=== PATIENT | female | born 1930 | race Caucasian/White ===

== ENCOUNTER 2017-09-03 20:24 | Emergency (ER) | payer MEDICARE, OTHER ==
[2017-09-03] MEDS ORDERED: Bacitracin Zinc 1 Packet ONE (20:47)
== END 2017-09-03 21:23 | disposition home or self-care (01) ==
LOC: BURERS 20:24
DX: S81.852A Open bite, left lower leg, initial encounter (principal); W54.0XXA Bitten by dog, initial encounter
CPT/HCPCS: 99283

== ENCOUNTER 2018-01-09 21:03 | Emergency (ER) | payer MEDICARE, OTHER ==
[2018-01-09] MEDS ORDERED: Bacitracin Zinc 1 Packet ONE (21:14)
== END 2018-01-09 21:30 | disposition home or self-care (01) ==
LOC: BURERS 21:03
DX: S80.812A Abrasion, left lower leg, initial encounter (principal); I25.10 Atherosclerotic heart disease of native coronary artery without angina pectoris; I10 Essential (primary) hypertension; Z79.899 Other long term (current) drug therapy; W54.0XXA Bitten by dog, initial encounter
CPT/HCPCS: 99283

== ENCOUNTER 2019-10-04 09:59 | Emergency (ER) | payer MEDICARE, OTHER ==
[2019-10-04 10:52] LABS: #Basophils 0.1 thou/uL (0.0-0.2); #Eosinphils 0.1 thou/uL (0.0-0.7); #Lymphocytes 0.7 thou/uL (1.20-3.40); #Neutrophils 8.7 thou/uL (1.40-6.50); %Basophils 1.1 % (0.0-1.0); %Eosinophils 1.4 % (0.0-10.0); %Lymphocytes 6.4 % (21.0-51.0); %Monocytes 9.6 % (0.0-10.0); %Neutrophils 81.5 % (42.0-75.0); Hemoglobin 13.6 g/dL (12.0-16.0); Mean Corpuscular HGB CONC 31.6 g/dL (32.0-36.0); Mean Corpuscular Hemoglobin 29.1 pg (27.0-31.0); Mean Corpuscular Volume 92.3 fL (78.0-98.0); Mean Platelet Volume 5.8 fL (7.4-10.4); Platelet Count 292 thou/uL (130-400); RBC Distribution Width 13.2 % (11.5-14.5); Red Blood Cell (RBC) Count 4.67 mill/uL (4.20-5.40); White Blood Cell (WBC) Count 10.7 thou/uL (4.8-10.8)
--- NOTE | 2019-10-04 10:55 | RAD ---
Radiograph left wrist 3 views: DATE: 10/04/2019 10:42 AM HISTORY: 89-year-old female with pain and swelling in left wrist. FINDINGS: There is diffuse soft tissue edema of the wrist. No displaced fracture identified. Severe DJD at first CMC joint. The rest of the joints appear normal. On the AP view, there is a subtle, transversely oriented linear lucency across the distal waist of th e navicular bone. IMPRESSION: 1. 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 2. Linear lucency across the scaphoid bone. If there is snuffbox tenderness following trauma, then th is could be a nondisplaced fracture. If not, then this may be a normal intertrabecular marking. 3. Diffuse soft tissue swelling edema of the wrist.
[2019-10-04 10:58] LABS: ALT (SGPT) 14 U/L (8-55); AST (SGOT) 12 U/L (5-34); Albumin 3.9 g/dL (3.4-4.8); Alkaline Phosphatase 41 U/L (40-110); Anion Gap 15 mmol/L (10-20); BUN (Urea Nitrogen) 16 mg/dL (9.8-20.1); Bilirubin, Total 0.4 mg/dL (0.2-1.2); CRP (Inflammatory) 1.74 mg/dL (= or < 0.5); Calc. Creatinine Clearance 0 mL/min (70-130); Calcium 9.7 mg/dL (7.8-10.44); Carbon Dioxide 25 mmol/L (23-31); Chloride 98 mmol/L (98-107); Estimated GFR-MDRD 50; Globulin 2.5 g/dL (2.4-3.5); Glucose 97 mg/dL (83-110); Potassium 4.4 mmol/L (3.5-5.1); Protein, Total 6.4 g/dL (6.0-8.3); Sodium 134 mmol/L (136-145)
== END 2019-10-04 11:47 | disposition home or self-care (01) ==
LOC: BURERS 09:59
DX: M11.232 Other chondrocalcinosis, left wrist (principal); S60.512D Abrasion of left hand, subsequent encounter; R23.4 Changes in skin texture; I25.10 Atherosclerotic heart disease of native coronary artery without angina pectoris; I10 Essential (primary) hypertension; Z79.899 Other long term (current) drug therapy; Z79.82 Long term (current) use of aspirin; X58.XXXD Exposure to other specified factors, subsequent encounter
CPT/HCPCS: 80053; 83605; 84484; 85025; 86140; 87040

== ENCOUNTER 2019-11-26 08:18 | Inpatient (IN) | payer MEDICARE, OTHER ==
[2019-11-26 08:51] LABS: Bilirubin Negative (Negative); Blood, Urine Moderate (Negative); Clarity Turbid (Clear); Glucose, Urine (Dipstick) Negative (Negative); Ketone, Urine Negative (Negative); Leukocyte Moderate (Negative); Nitrite Positive (Negative); Protein, Urine (Dipstick) 100 mg/dL (Neg-Trace); Specific Gravity, Urine 1.015 (1.005-1.030); Urobilinogen 0.2 mg/dL (Less than 2)
[2019-11-26 09:00] LABS: Bacteria/HPF 3+ HPF (None Seen); RBC/HPF 0-3 HPF (0-3); Renal Epithelial 0-3 HPF (None Seen); Squamous Epithelial 0-3 HPF (0-3); Transitional Epithelial 0-3 HPF (None Seen); WBC/HPF 21-50 HPF (0-3)
[2019-11-26] MEDS ORDERED: Milk Of Magnesia 30 ML UDCUP ONE (09:31)
[2019-11-26] MEDS ORDERED: cefTRIAXone\\ROCEPHIN 2 GM VIAL ONE (09:32)
[2019-11-26] MEDS ORDERED: Sodium Chloride 0.9% 100 ML ONE (09:34)
[2019-11-26 09:42] LABS: #Basophils 0.1 thou/uL (0.0-0.2); #Lymphocytes 0.7 thou/uL (1.20-3.40); #Monocytes 1.2 thou/uL (0.11-0.59); #Neutrophils 11.7 thou/uL (1.40-6.50); %Basophils 0.5 % (0.0-1.0); %Eosinophils 0.1 % (0.0-10.0); %Lymphocytes 5.4 % (21.0-51.0); %Neutrophils 85.1 % (42.0-75.0); Hemoglobin 12.3 g/dL (12.0-16.0); Mean Corpuscular HGB CONC 30.6 g/dL (32.0-36.0); Mean Corpuscular Hemoglobin 28.1 pg (27.0-31.0); Mean Corpuscular Volume 91.8 fL (78.0-98.0); Mean Platelet Volume 5.2 fL (7.4-10.4); Platelet Count 336 thou/uL (130-400); RBC Distribution Width 13.4 % (11.5-14.5); Red Blood Cell (RBC) Count 4.38 mill/uL (4.20-5.40); White Blood Cell (WBC) Count 13.8 thou/uL (4.8-10.8)
[2019-11-26 09:47] LABS: ALT (SGPT) 16 U/L (8-55); AST (SGOT) 10 U/L (5-34); Albumin 3.5 g/dL (3.4-4.8); Alkaline Phosphatase 71 U/L (40-110); Anion Gap 14 mmol/L (10-20); BUN (Urea Nitrogen) 14 mg/dL (9.8-20.1); Bilirubin, Total 0.4 mg/dL (0.2-1.2); CK (CPK) Less than 9 U/L (29-168); Calc. Creatinine Clearance 0 mL/min (70-130); Calcium 9.4 mg/dL (7.8-10.44); Carbon Dioxide 28 mmol/L (23-31); Chloride 98 mmol/L (98-107); Estimated GFR-MDRD 49; Glucose 91 mg/dL (83-110); Potassium 4.3 mmol/L (3.5-5.1); Protein, Total 6.5 g/dL (6.0-8.3); Sodium 136 mmol/L (136-145)
[2019-11-26] MEDS ORDERED: Ondansetron PF 4 MG/2 ML Vial IVP PRN (11:15)
[2019-11-26] MEDS ORDERED: Ondansetron ODT 4 MG TAB PO PRN (11:16)
[2019-11-26] MEDS: Sodium Chloride 0.9% 1,000 ML IV SCH (13:08)
--- NOTE | 2019-11-26 14:22 | HP ---
CHIEF COMPLAINT: Flank pain. HISTORY OF PRESENT ILLNESS: This is an 89-year-old female, patient of Dr. Hall who presented to the [facility] Emergency Department earlier today with complaints of generalized flank and abdominal discomfort accompanied by a foul smelling urine for the last 2 days. The patient reports having overall poor intake over this 2-day time frame. She denies having nausea, vomiting, or fever. Due to worsening symptoms, she presented to the ER accordingly. Workup in the ER revealed the patient to have a urinary tract infection along with leukocytosis with left shift and a mildly hypotensive state. Her hypotension did improve with intravenous fluids in the emergency department. She was also provided IV Rocephin in the emergency department after having cultures obtained. She will subsequently be admitted to the floor for further antibiotic care and gentle IV hydration for pyelonephritis. PAST MEDICAL HISTORY: Includes hypertension; coronary artery disease; hypothyroidism; giant-cell arteritis, followed by Dr. Park; endocarditis for which she was evaluated and treated approximately [address] Baca at [place] and [facility] in [place]. The patient reports completing her oral antibiotics for this issue between 1 and 2 weeks ago. SURGICAL HISTORY: She has had a partial bowel resection, appendectomy, cholecystectomy, hysterectomy with one ovary left in place. She has 3 cardiac stents and she has a renal artery stent. SOCIAL HISTORY: The patient lives in [place] with her daughter, son-in-law and her grandson. She denies a history of smoking, alcohol, or illicit drug use. FAMILY HISTORY: Noncontributory. HOME MEDICATIONS: 1. Chronic prednisone therapy currently at 8 mg daily. 2. Spironolactone 25 mg b.i.d. 3. Levothyroxine 50 mcg daily. 4. Zetia 10 mg at bedtime. 5. Diltiazem extended release 120 mg daily. 6. Carvedilol 25 mg b.i.d. 7. Alprazolam 0.25 mg b.i.d. as needed. REVIEW OF SYSTEMS: GENERAL: She denies fever, chills or diaphoresis. EAR, NOSE, AND THROAT: Denies sore throat, nasal congestion or drainage. CARDIOVASCULAR: Denies chest pain or palpitations. RESPIRATORY: Denies shortness of breath or cough. GASTROINTESTINAL: She has had suprapubic pain and flank pain. Denies nausea, vomiting, diarrhea, or constipation. GENITOURINARY: She does have dysuria. MUSCULOSKELETAL: Denies joint pain. DERMATOLOGIC: Denies rash. NEUROLOGIC: Denies headache. LABORATORY DATA: White blood cell count is 13.8, hemoglobin is 12.3, hematocrit 40.2, and platelets are 336. Sodium 136, potassium 4.3, BUN is 14 with creatinine 1.07, GFR is 49, glucose 91. Lactic acid 1.2. AST 10, ALT 16. Troponin was less than 0.010. Anion gap is normal at 14. Urine was turbid with moderate blood and positive for nitrites and leukocyte esterase. IMAGING: Pending official radiological read; however, ER physician discussion with Radiology was advised of likely atelectasis. PHYSICAL EXAMINATION: VITAL SIGNS: Temperature is 98.1, pulse is 65, respiratory rate is 18, oxygen is 96% on room air, and blood pressure is 108/54. GENERAL: The patient is alert and oriented, in no acute distress she has been. HEAD, EYES, EARS, NOSE, AND THROAT: Normocephalic and atraumatic. Pupils are equal, round, and reactive to light. Extraocular muscles are intact bilaterally. She has dry mucous membranes. NECK: Supple with no lymphadenopathy. CARDIOVASCULAR: Regular rate and rhythm with a 2/6 murmur. RESPIRATORY: She has rhonchi to the lung bases with no respiratory compromise. ABDOMEN: Soft and nontender to palpation. She does have costovertebral angle tenderness on the right. She has no rebound or guarding. EXTREMITIES: She has skin abrasions to the left lower extremity. She has peripheral IV access to the left upper extremity. She has no clubbing, cyanosis, or edema. SKIN: No rash. NEUROLOGIC: Nonfocal with cranial nerves 2 through 12 grossly intact. ASSESSMENT AND PLAN: 1. Pyelonephritis. We will resume the patient on IV Rocephin and follow up her urine cultures. We will trend her CBC to assess for resolution of her current leukocytosis. 2. Dehydration. The patient will be continued on normal saline at 50 mL an hour for gentle rehydration. 3. Giant cell arteritis. We will continue the patient's chronic prednisone therapy. 4. Coronary artery disease. The patient is hemodynamically stable. We will resume her usual medications. 5. Atelectasis. We will provide the patient with an incentive spirometer. 6. Hypertension: We will monitor the patient's blood pressure as she was initially mildly hypotensive. It has since rebounded status post IV fluids. We will resume her usual blood pressure medications otherwise. 7. Hypothyroidism. We will resume the patient's home dosing of levothyroxine. 8. Prophylaxis, will provide low Lovenox for DVT prophylaxis and Protonix for GI prophylaxis. 9. Code status is full. 10. Disposition, anticipate the patient to be able to discharge home on a course of oral antibiotics once urine culture is finalized and the patient's oral intake returns back to her baseline. Job ID: [id number]
[2019-11-26] MEDS: Acetaminophen 325 MG TAB PO PRN (14:29)
--- NOTE | 2019-11-26 15:12 | RAD ---
PORTABLE CHEST: 11/26/19 Comparison is made with the prior chest film of 11/04/[address] scan done that day. There is a linear infiltrate in the right base that was not present on the prior chest x-ray. The CT done that day showed some minimal right basilar haziness that was not visible on the chest radiograph . The linear nature of the infiltrate today suggested statistically more likely that this is atelecta sis than infection; however, the latter is not ruled out. Given the current environment, viral testin g might be prudent anyway. No infiltrates were appreciated on the left. The heart size is stable. Den se arterial sclerosis in the aorta is present as usual. IMPRESSION: New linear right basilar infiltrate. More likely atelectasis due to its shape, but infection is not s pecifically excluded. Findings discussed with Dr. Stewart at 1005 on 11/26/2019. POS: HOME
[2019-11-26] MEDS: Spironolactone 25 MG TAB PO SCH (16:21)
[2019-11-26] MEDS: ALPRAZolam 0.5 MG TAB PO PRN (20:27)
[2019-11-26] MEDS: Ezetimibe 10 MG TAB PO SCH (20:28)
[2019-11-26] MEDS: Enoxaparin Sodium 30 MG/0.3 ML SYRINGE SC SCH (20:28)
[2019-11-26] MEDS: Carvedilol 25 MG TAB PO SCH (20:28)
[2019-11-27] MEDS: Sodium Chloride 0.9% 1,000 ML IV SCH ×3 (00:44→23:51)
[2019-11-27] MEDS: traMADol HCl 50 MG TAB PO PRN (01:26)
[2019-11-27] MEDS: Levothyroxine Sodium 50 MCG TAB PO SCH (05:30)
[2019-11-27] MEDS: Acetaminophen 325 MG TAB PO PRN (05:30)
[2019-11-27] MEDS: ALPRAZolam 0.5 MG TAB PO PRN ×3 (05:30→23:52)
[2019-11-27 07:16] LABS: #Basophils 0.1 thou/uL (0.0-0.2); #Lymphocytes 1.3 thou/uL (1.20-3.40); #Monocytes 1.4 thou/uL (0.11-0.59); #Neutrophils 11.1 thou/uL (1.40-6.50); %Basophils 0.8 % (0.0-1.0); %Eosinophils 0.2 % (0.0-10.0); %Lymphocytes 9.2 % (21.0-51.0); %Monocytes 10.3 % (0.0-10.0); %Neutrophils 79.5 % (42.0-75.0); Hemoglobin 11.1 g/dL (12.0-16.0); Mean Corpuscular HGB CONC 30.4 g/dL (32.0-36.0); Mean Corpuscular Volume 92.2 fL (78.0-98.0); Mean Platelet Volume 5.1 fL (7.4-10.4); Platelet Count 306 thou/uL (130-400); RBC Distribution Width 13.2 % (11.5-14.5); Red Blood Cell (RBC) Count 3.97 mill/uL (4.20-5.40)
[2019-11-27 07:24] LABS: ALT (SGPT) 11 U/L (8-55); AST (SGOT) 8 U/L (5-34); Albumin 2.9 g/dL (3.4-4.8); Alkaline Phosphatase 57 U/L (40-110); Anion Gap 13 mmol/L (10-20); BUN (Urea Nitrogen) 11 mg/dL (9.8-20.1); Bilirubin, Total 0.3 mg/dL (0.2-1.2); Calc. Creatinine Clearance 39 mL/min (70-130); Calcium 8.5 mg/dL (7.8-10.44); Carbon Dioxide 24 mmol/L (23-31); Chloride 104 mmol/L (98-107); Estimated GFR-MDRD 72; Globulin 2.5 g/dL (2.4-3.5); Glucose 81 mg/dL (83-110); Potassium 4.1 mmol/L (3.5-5.1); Protein, Total 5.4 g/dL (6.0-8.3); Sodium 137 mmol/L (136-145)
[2019-11-27] MEDS: Saccharomyces boulardii 250 MG CAP PO SCH (09:38)
[2019-11-27] MEDS: Spironolactone 25 MG TAB PO SCH ×2 (09:38→16:13)
[2019-11-27] MEDS: Carvedilol 25 MG TAB PO SCH ×2 (09:39→21:10)
[2019-11-27] MEDS: cefTRIAXone\\ROCEPHIN 1 GM in Sodium Chloride 0.9% 100 ML IVPB SCH (09:41)
[2019-11-27] MEDS: predniSONE 10 MG TAB PO SCH (09:44)
[2019-11-27] MEDS: Ezetimibe 10 MG TAB PO SCH (21:10)
[2019-11-27] MEDS: Enoxaparin Sodium 30 MG/0.3 ML SYRINGE SC SCH (21:10)
[2019-11-28] MEDS: traMADol HCl 50 MG TAB PO PRN (01:12)
[2019-11-28] MEDS: Levothyroxine Sodium 50 MCG TAB PO SCH (05:04)
[2019-11-28 06:29] VITALS: TEMP 97.9
[2019-11-28 07:26] LABS: #Basophils 0.1 thou/uL (0.0-0.2); #Lymphocytes 1.2 thou/uL (1.20-3.40); #Monocytes 1.1 thou/uL (0.11-0.59); #Neutrophils 10.3 thou/uL (1.40-6.50); %Basophils 0.6 % (0.0-1.0); %Eosinophils 0.2 % (0.0-10.0); %Lymphocytes 9.5 % (21.0-51.0); %Monocytes 8.7 % (0.0-10.0); %Neutrophils 80.9 % (42.0-75.0); Hemoglobin 10.4 g/dL (12.0-16.0); Mean Corpuscular HGB CONC 32.1 g/dL (32.0-36.0); Mean Corpuscular Hemoglobin 28.6 pg (27.0-31.0); Mean Corpuscular Volume 89.1 fL (78.0-98.0); Platelet Count 322 thou/uL (130-400); RBC Distribution Width 13.1 % (11.5-14.5); Red Blood Cell (RBC) Count 3.63 mill/uL (4.20-5.40); White Blood Cell (WBC) Count 12.8 thou/uL (4.8-10.8)
[2019-11-28] MEDS: Saccharomyces boulardii 250 MG CAP PO SCH (08:17)
[2019-11-28] MEDS: Spironolactone 25 MG TAB PO SCH ×2 (08:17→17:20)
[2019-11-28] MEDS: Carvedilol 25 MG TAB PO SCH (08:17)
[2019-11-28] MEDS: cefTRIAXone\\ROCEPHIN 1 GM in Sodium Chloride 0.9% 100 ML IVPB SCH (10:28)
[2019-11-28] MEDS: predniSONE 10 MG TAB PO SCH (10:28)
[2019-11-28] MEDS: Acetaminophen 325 MG TAB PO PRN (12:55)
[2019-11-28] MEDS ORDERED: Meclizine HCl 25 MG TAB PO SCH (14:15)
--- NOTE | 2019-11-28 16:03 | DIS ---
DATE OF ADMISSION: 11/26/2019 DATE OF DISCHARGE: 11/28/2019 ADMISSION DIAGNOSIS: Pyelonephritis. DISCHARGE DIAGNOSES: Pyelonephritis, COVID positive, dehydration, giant-cell arteritis, coronary artery disease, atelectasis, hypertension, hypothyroidism, and anxiety. PROCEDURES: 11/26/19, chest x-ray showed new linear right basilar infiltrate, more likely atelectasis due to its shape, but infection is not specifically excluded. HOSPITAL COURSE: This 89-year-old female presented to the [facility] Emergency Department with complaints of flank pain, right greater than left, and generalized abdominal discomfort accompanied by a foul smelling urine over a 2-day time period in which she also had poor intake. Workup in the emergency department revealed the patient to have a urinary tract infection along with leukocytosis with left shift. She was mildly hypotensive and thus was provided IV fluids. After cultures were obtained, she was started on IV Rocephin. Secondary to the patient having a recent mild cough and in conjunction with her chest x-ray finding as above, she was swabbed for COVID prior to her transition to the floor. The patient resumed on IV Rocephin and gentle IV hydration as her oral intake improved. Her COVID test did come back positive. However, she did remain stable on room air and afebrile throughout her stay. Her urine cultures returned and isolated Citrobacter koseri, which happened to be pansensitive. Due to the patient's improvements from her initial admission, she is agreeable to discharge back to her home setting to complete an oral course of Keflex. She has been instructed on precautions in regard to her COVID positive diagnosis and has been further educated on emergency department precautions should her respiratory status worsen. DISPOSITION: The patient will discharge home where she lives in [place] with her daughter and son-in-law along with her grandson. She may follow up with her primary care provider, Dr. Hall this next week. She also reports to have home health for further transition of care although she does not recall the name of the home health company. DISCHARGE MEDICATIONS: 1. One new medication will be Keflex 500 mg p.o. b.i.d. x7 days. 2. She will resume her usual medications otherwise which include. a. Alprazolam 0.25 mg b.i.d. p.r.n. b. Carvedilol 25 mg b.i.d. c. Diltiazem 120 mg daily. d. Zetia 10 mg at bedtime. e. Levothyroxine 50 mcg daily. f. Prednisone 8 mg daily. g. Florastor 250 mg daily. h. Spironolactone 50 mg b.i.d. i. Tramadol 50 mg b.i.d. as needed. Job ID: [id number] [facility]
[2019-11-28 16:55] VITALS: BP 156/70
== END 2019-11-28 17:20 | disposition home health service (06) | DRG 689 ==
LOC: BURERS 08:18 → BURMED 10:10
PROVIDERS: ADMIT Family Medicine; ATTEND Family Medicine
DX: N12 Tubulo-interstitial nephritis, not specified as acute or chronic (principal); U07.1 COVID-19; J98.11 Atelectasis; I10 Essential (primary) hypertension; I25.10 Atherosclerotic heart disease of native coronary artery without angina pectoris; E03.9 Hypothyroidism, unspecified; E86.0 Dehydration; M31.6 Other giant cell arteritis; F41.9 Anxiety disorder, unspecified; I95.9 Hypotension, unspecified; B96.89 Other specified bacterial agents as the cause of diseases classified elsewhere; Z90.49 Acquired absence of other specified parts of digestive tract; Z90.710 Acquired absence of both cervix and uterus; Z95.5 Presence of coronary angioplasty implant and graft
CPT/HCPCS: 36415; 71045; 80053; 81003; 81015; 82550; 83605; 84484; 85025; 87040; 87070; 87077; 87086; 87186; 87205; 93005; 96361; 96365; J0696; J1650; J3490; J7512; U0002

== ENCOUNTER 2021-04-21 11:17 | Emergency (ER) | payer MEDICARE, OTHER ==
[2021-04-21 11:52] LABS: #Eosinphils 0.1 thou/uL (0.0-0.7); #Lymphocytes 0.8 thou/uL (1.20-3.40); #Monocytes 0.5 thou/uL (0.11-0.59); #Neutrophils 7.8 thou/uL (1.40-6.50); %Basophils 0.5 % (0.0-1.0); %Eosinophils 1.3 % (0.0-10.0); %Lymphocytes 8.2 % (21.0-51.0); %Monocytes 5.7 % (0.0-10.0); %Neutrophils 84.2 % (42.0-75.0); Hemoglobin 10.1 g/dL (12.0-16.0); Mean Corpuscular HGB CONC 31.6 g/dL (32.0-36.0); Mean Corpuscular Volume 88.5 fL (78.0-98.0); Mean Platelet Volume 6.3 fL (7.4-10.4); Platelet Count 312 thou/uL (130-400); RBC Distribution Width 15.6 % (11.5-14.5); Red Blood Cell (RBC) Count 3.59 mill/uL (4.20-5.40); White Blood Cell (WBC) Count 9.3 thou/uL (4.8-10.8)
[2021-04-21 12:13] LABS: ALT (SGPT) 17 U/L (8-55); AST (SGOT) 13 U/L (5-34); Alkaline Phosphatase 44 U/L (40-110); Anion Gap 18 mmol/L (10-20); BUN (Urea Nitrogen) 67 mg/dL (9.8-20.1); Bilirubin, Total 0.5 mg/dL (0.2-1.2); CK (CPK) 29 U/L (29-168); Calc. Creatinine Clearance 0 mL/min (70-130); Calcium 9.4 mg/dL (7.8-10.44); Carbon Dioxide 10 mmol/L (23-31); Chloride 112 mmol/L (98-107); Globulin 2.6 g/dL (2.4-3.5); Glucose 108 mg/dL (83-110); Magnesium 1.6 mg/dL (1.6-2.6); Protein, Total 6.6 g/dL (5.8-8.1); Sodium 135 mmol/L (136-145)
[2021-04-21] MEDS ORDERED: Aspirin Chewable 81 MG TAB ONE (12:22)
[2021-04-21 12:27] LABS: CKMB 2.9 ng/mL (0-6.6)
[2021-04-21] MEDS ORDERED: Sodium Bicarb 50 MEQ/50 ML Abboject 8.4% SYRINGE ONE ×2 (12:42→19:15)
[2021-04-21 14:50] LABS: SARS-CoV-2 NAA Rapid Test Not Detected (NotDetected)
[2021-04-21 17:38] LABS: Anion Gap 19 mmol/L (10-20); BUN (Urea Nitrogen) 61 mg/dL (9.8-20.1); Calc. Creatinine Clearance 0 mL/min (70-130); Calcium 8.4 mg/dL (7.8-10.44); Carbon Dioxide 10 mmol/L (23-31); Chloride 114 mmol/L (98-107); Glucose 78 mg/dL (83-110); Potassium 5.2 mmol/L (3.5-5.1); Sodium 138 mmol/L (136-145)
[2021-04-21 17:58] LABS: CKMB 3.1 ng/mL (0-6.6)
[2021-04-21 19:07] LABS: Bilirubin Negative (Negative); Blood, Urine Small (Negative); Clarity Clear (Clear); Glucose, Urine (Dipstick) Negative (Negative); Ketone, Urine Trace mg/dL (Negative); Leukocyte Negative (Negative); Nitrite Negative (Negative); Protein, Urine (Dipstick) 30 mg/dL (Neg-Trace); Specific Gravity, Urine 1.015 (1.005-1.030); Urobilinogen 0.2 mg/dL (Less than 2)
[2021-04-21 19:13] LABS: Bacteria/HPF 2+ HPF (None Seen); RBC/HPF 0-3 HPF (0-3); Squamous Epithelial 0-3 HPF (0-3); WBC/HPF 0-3 HPF (0-3)
[2021-04-21 19:20] LABS: Bicarbonate (HCO3v) 12.9 mmol/L (22.0-28.0); Calcium, Ionized 1.12 mmol/L (1.15-1.33); Chloride 115 mmol/L (98-107); Hemoglobin - Calc 9.3 g/dL (12.0-16.0); Potassium 4.7 mmol/L (3.5-5.1); Sodium 137 mmol/L (138-145); T. Carbon Dioxide 13.8 mmol/L (22.0-28.0); vO2 Saturation-calc 45.6 % (60.0-85.0)
== END 2021-04-21 22:15 | disposition short-term general hospital (02) ==
LOC: BURERS 11:17
DX: N17.9 Acute kidney failure, unspecified (principal); E87.2 Acidosis; I51.7 Cardiomegaly; I10 Essential (primary) hypertension; I25.10 Atherosclerotic heart disease of native coronary artery without angina pectoris; I25.2 Old myocardial infarction; E03.9 Hypothyroidism, unspecified; K21.9 Gastro-esophageal reflux disease without esophagitis; E78.5 Hyperlipidemia, unspecified; Z95.5 Presence of coronary angioplasty implant and graft; Z20.822 Contact with and (suspected) exposure to COVID-19; Z79.82 Long term (current) use of aspirin; Z79.899 Other long term (current) drug therapy
CPT/HCPCS: 71045; 80048; 80053; 82330; 82435; 82550; 82553; 82803; 83605; 83735; 83880; 84132; 84295; 84484 ×2; 85014; 85025; 93005; 94760; 99285; U0002; 81003; 81015

== ENCOUNTER 2021-05-29 08:00 | Emergency (ER) | payer MEDICARE, OTHER ==
[2021-05-29 09:13] LABS: #Basophils 0.1 thou/uL (0.0-0.2); #Eosinphils 0.1 thou/uL (0.0-0.7); #Lymphocytes 0.8 thou/uL (1.20-3.40); #Monocytes 0.9 thou/uL (0.11-0.59); #Neutrophils 6.3 thou/uL (1.40-6.50); %Basophils 1.3 % (0.0-1.0); %Eosinophils 0.8 % (0.0-10.0); %Lymphocytes 9.5 % (21.0-51.0); %Monocytes 10.6 % (0.0-10.0); %Neutrophils 77.7 % (42.0-75.0); Hemoglobin 8.6 g/dL (12.0-16.0); Mean Corpuscular HGB CONC 31.3 g/dL (32.0-36.0); Mean Corpuscular Hemoglobin 25.7 pg (27.0-31.0); Mean Corpuscular Volume 82.1 fL (78.0-98.0); Mean Platelet Volume 5.5 fL (7.4-10.4); Platelet Count 490 thou/uL (130-400); RBC Distribution Width 15.9 % (11.5-14.5); Red Blood Cell (RBC) Count 3.34 mill/uL (4.20-5.40); White Blood Cell (WBC) Count 8.1 thou/uL (4.8-10.8)
[2021-05-29 09:25] LABS: ALT (SGPT) 25 U/L (8-55); AST (SGOT) 17 U/L (5-34); Albumin 3.8 g/dL (3.4-4.8); Alkaline Phosphatase 89 U/L (40-110); Anion Gap 16 mmol/L (10-20); BUN (Urea Nitrogen) 14 mg/dL (9.8-20.1); Bilirubin, Total 0.3 mg/dL (0.2-1.2); Calc. Creatinine Clearance 0 mL/min (70-130); Calcium 8.8 mg/dL (7.8-10.44); Carbon Dioxide 20 mmol/L (23-31); Chloride 98 mmol/L (98-107); Globulin 2.4 g/dL (2.4-3.5); Glucose 89 mg/dL (83-110); Potassium 4.3 mmol/L (3.5-5.1); Protein, Total 6.2 g/dL (5.8-8.1); Sodium 130 mmol/L (136-145)
[2021-05-29] MEDS ORDERED: Acetaminophen 500 MG TAB ONE (10:09)
[2021-05-29 11:04] LABS: SARS-CoV-2 NAA Rapid Test Not Detected (NotDetected)
[2021-05-29 13:08] LABS: Bilirubin Negative (Negative); Blood, Urine Small (Negative); Clarity Clear (Clear); Glucose, Urine (Dipstick) Negative (Negative); Ketone, Urine Trace mg/dL (Negative); Leukocyte Negative (Negative); Nitrite Negative (Negative); Protein, Urine (Dipstick) Negative (Neg-Trace); Urobilinogen 0.2 mg/dL (Less than 2)
[2021-05-29 13:36] LABS: RBC/HPF 0-3 HPF (0-3); Squamous Epithelial 0-3 HPF (0-3); WBC/HPF 0-3 HPF (0-3)
[2021-05-29 13:37] LABS: Bacteria/HPF None Seen HPF (None Seen)
== END 2021-05-29 12:56 | disposition home or self-care (01) ==
LOC: BURERS 08:00
DX: B34.9 Viral infection, unspecified (principal); Z20.822 Contact with and (suspected) exposure to COVID-19; I10 Essential (primary) hypertension; I25.2 Old myocardial infarction; K21.9 Gastro-esophageal reflux disease without esophagitis; E78.5 Hyperlipidemia, unspecified
CPT/HCPCS: 0240U; 71045; 80053; 84484; 85025; 93005; 36415; 81003; 81015

== ENCOUNTER 2021-06-10 08:00 | Outpatient (CLI) | payer MEDICARE, OTHER ==
[2021-06-10 09:46] LABS: Protein, Total 6.5 g/dL (5.8-8.1)
[2021-06-10 09:51] LABS: ALT (SGPT) 23 U/L (8-55); AST (SGOT) 18 U/L (5-34); Albumin 3.6 g/dL (3.4-4.8); Alkaline Phosphatase 93 U/L (40-110); Anion Gap 17 mmol/L (10-20); BUN (Urea Nitrogen) 23 mg/dL (9.8-20.1); Bilirubin, Total 0.5 mg/dL (0.2-1.2); Calc. Creatinine Clearance 0 mL/min (70-130); Calcium 9.4 mg/dL (7.8-10.44); Carbon Dioxide 19 mmol/L (23-31); Chloride 109 mmol/L (98-107); Globulin 2.9 g/dL (2.4-3.5); Glucose 86 mg/dL (83-110); Sodium 141 mmol/L (136-145)
== END 2021-06-10 08:01 | disposition home or self-care (01) ==
LOC: BURCT 08:00
PROVIDERS: ATTEND Family Medicine
DX: Z13.228 Encounter for screening for other metabolic disorders (principal); R91.1 Solitary pulmonary nodule; R91.8 Other nonspecific abnormal finding of lung field; J98.4 Other disorders of lung; I25.10 Atherosclerotic heart disease of native coronary artery without angina pectoris; M40.209 Unspecified kyphosis, site unspecified
CPT/HCPCS: 36415; 71260; 80053